=== PATIENT | female | born 1985 | race American Indian/Alaskan Native ===

== ENCOUNTER 2017-01-16 12:00 | Emergency (ER) | payer SELFPAY ==
[2017-01-16 12:09] VITALS: BP 152/103
--- NOTE | 2017-01-16 12:13 | Emergency Department Report ---
Chief Complaint: Back Pain/Injury Stated Complaint: BACK PAIN Time Seen by Provider: 01/16/17 12:11 - HPI History of Present Illness: pt states she got off the fork lift wrong and her back popped and started to hurt. PT states the back pain is worse with movement. - ROS Review of Systems: + nausea - vomiting - Exam Vital Signs: Vital Signs 01/16/17 01/16/17 12:07 12:08 Temperature 98.4 F Pulse Rate 86 Respiratory 18 18 Rate Blood Pressure 152/103 O2 Sat by Pulse 99 Oximetry Physical Exam: + lumbar tenderness on exam MSE screening note: Focused history and physical exam performed. Due to findings the following was ordered: lab, xr ED Disposition for MSE Condition: Stable
[2017-01-16] MEDS ORDERED: TORADOL IM ONE (12:42)
--- NOTE | 2017-01-16 14:17 | XRay Report ---
LUMBAR SPINE RADIOGRAPHS: INDICATION: Back pain. COMPARISON: None similar. FINDINGS: AP and lateral lumbar spine radiographs demonstrate preserved vertebral body stature, alignment and disc heights. Mild adjacent endplate degenerative spurring at L4-L5. Nonobstructive bowel gas pattern. Normal bilateral SI joints. CONCLUSION: No acute radiographic abnormality with slight lower lumbar degenerative changes. Thank you for the opportunity to participate in this patient's care.
== END 2017-01-16 13:00 | disposition left against medical advice (07) ==
LOC: ED 12:00
DX: M54.89 Other dorsalgia (principal); Z53.21 Procedure and treatment not carried out due to patient leaving prior to being seen by health care provider
CPT/HCPCS: 36415; 72100; 84703